=== PATIENT | male | born 1960 | race Two or more races ===

== ENCOUNTER 2022-12-21 17:09 | Emergency (ER) | payer OTHER ==
[~2022-12-21] VITALS: Ht 170.2 cm; Wt 83.2 kg
[2022-12-21 18:43] VITALS: BP 176/101; PULSE 82; RESP 16; O2SAT 97
[2022-12-21] MEDS ORDERED: ACETAMINOPHEN 500 MG TAB PO ONE (20:30)
[2022-12-21] MEDS ORDERED: LEVO500T91 PO (23:52)
[2022-12-21] MEDS ORDERED: AUG875T PO (23:52)
== END 2022-12-22 01:53 | disposition home or self-care (01) ==
LOC: ER 17:09
DX: S61.221A Laceration with foreign body of left index finger without damage to nail, initial encounter (principal); W26.9XXA Contact with unspecified sharp object(s), initial encounter; Y93.89 Activity, other specified; Y92.89 Other specified places as the place of occurrence of the external cause; Y99.8 Other external cause status
CPT/HCPCS: 12002; 73130